=== PATIENT | male | born 1995 | race Caucasian/White ===

== ENCOUNTER 2017-06-23 21:32 | Emergency (ER) | payer OTHER ==
[~2017-06-23] VITALS: Ht 182.9 cm; Wt 74.8 kg
[2017-06-23 21:37] VITALS: BP 131/76
[2017-06-23] MEDS ORDERED: ACETAMINOPHEN ES 500 MG TABLET ONE (22:26)
[2017-06-23] MEDS ORDERED: IBUPROFEN 600 MG TABLET PO ONE ×2 (22:27→22:30)
[2017-06-23] MEDS ORDERED: ALBUTEROL FS 2.5 MG/3 ML VIAL.NEB NEB ONE (22:30)
[2017-06-23] MEDS ORDERED: ACETAMINOPHEN ES 500 MG TABLET PO ONE (22:30)
[2017-06-23] MEDS ORDERED: ALBUTEROL FS 2.5 MG/3 ML VIAL.NEB ONE (22:31)
== END 2017-06-24 00:04 | disposition home or self-care (01) ==
LOC: ER 21:32
DX: J11.1 Influenza due to unidentified influenza virus with other respiratory manifestations (principal); J45.901 Unspecified asthma with (acute) exacerbation
CPT/HCPCS: 71045-TC; A4606; Z7610